=== PATIENT | male | born 1960 ===

== ENCOUNTER → 2021-11-24 | Outpatient (CLI) | payer OTHER ==
--- NOTE | 2021-11-24 13:12 | Diagnostic Imaging Report ---
PROCEDURE: MRI lumbar spine. TECHNIQUE: Multiplanar, multisequence MRI of the lumbar spine was performed without contrast. INDICATION: Back pain and sciatica. EXAMINATION: Lumbar spine MRI without contrast 05/15/2021 FINDINGS: There is normal height and alignment of the vertebral bodies. Tip of the conus unremarkable in appearance and location. L1-L2: Unremarkable. L2-L3: There is bilateral facet and ligamentum flavum hypertrophy. There is no central stenosis. The neural foramina appear patent. L3-L4: There is intervertebral disc space narrowing and disc desiccation. There is bilateral facet and ligamentum flavum hypertrophy. There is minimal broad-based bulging disc material flattening the ventral thecal sac without central stenosis. There is moderate bilateral neural foraminal narrowing. L4-L5: There is a mild broad-based bulging disc. There is intervertebral disc space narrowing and disc desiccation. There is bilateral facet and ligamentum flavum hypertrophy. There is flattening the ventral thecal sac without central stenosis. There is bilateral moderate neural foraminal stenosis. L5-S1: There is intervertebral disc space narrowing and disc desiccation. There is bilateral facet and ligamentum flavum hypertrophy. There is a right paracentral disc protrusion which causes mild central stenosis and mild narrowing of the right lateral recess. There is moderate bilateral neural foraminal narrowing. 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 No acute abnormalities appreciated. IMPRESSION: 1. Degenerative findings predominantly from L3-L4 through L5-S1 as discussed above without significant central or neural foraminal stenosis. Dictated by: Dictated on workstation # [id number]
== END ==
LOC: RAD 10:15
PROVIDERS: ATTEND Physician Assistant
DX: M51.36 Other intervertebral disc degeneration, lumbar region (principal); M47.26 Other spondylosis with radiculopathy, lumbar region; M47.817 Spondylosis without myelopathy or radiculopathy, lumbosacral region; M48.061 Spinal stenosis, lumbar region without neurogenic claudication; M51.37 Other intervertebral disc degeneration, lumbosacral region
CPT/HCPCS: 72148